=== PATIENT | male | born 1950 | race Caucasian/White ===

== ENCOUNTER → 2025-08-16 | Outpatient (CLI) | payer MEDICARE, SELFPAY ==
[2025-08-16 10:11] LABS: Color, Urine Yellow (Yellow); Glucose, Dipstick 1000 mg/dl (Normal); Ketone-Dipstick Negative (Negative); Leukocyte Esterase-Dipstick Negative /ul (Negative); Nitrite-Dipstick Negative (Negative); Occult Blood-Urine 10 /ul (Negative); Protein-Dipstick 15 mg/dl (Negative); Specific Gravity, Urine 1.025 (1.002-1.030); Urine Bilirubin Dipstick Negative (Negative)
== END | disposition home or self-care (01) ==
PROVIDERS: Referring Provider Chiropractor; Visit Provider Chiropractor
DX: E11.9 Type 2 diabetes mellitus without complications (principal); Z85.6 Personal history of leukemia
CPT/HCPCS: 81002